=== PATIENT | female | born 1990 | race Two or more races ===

== ENCOUNTER 2017-07-06 20:56 | Inpatient (IN) | payer MEDICAID ==
[~2017-07-06] VITALS: Ht 149.9 cm; Wt 64.5 kg
[2017-07-06] MEDS ORDERED: DIPHENHYDRAMINE 50 MG/ML, 1ML IVPush ONE (21:30)
[2017-07-06] MEDS ORDERED: SODIUM CHLORIDE 0.9% 1,000ML IVBOLUS ONE (21:30)
[2017-07-06] MEDS ORDERED: METOCLOPRAMIDE 5 MG/ML, 2ML IVPush ONE (21:30)
[2017-07-06] MEDS ORDERED: DIPHENHYDRAMINE 50 MG/ML, 1ML ONE (21:54)
[2017-07-06] MEDS ORDERED: MORPHINE SULFATE 4 MG/ML, 1ML ONE (21:54)
[2017-07-06] MEDS ORDERED: METOCLOPRAMIDE 5 MG/ML, 2ML ONE (21:54)
[2017-07-06 21:59] LABS: PATH.CAST-FLAG NOT PRESENT; SPERM-FLAG NOT PRESENT; SRC-FLAG NOT PRESENT; XTAL-FLAG NOT PRESENT; YLC-FLAG NOT PRESENT
[2017-07-06 21:59] LABS: HEMATOCRIT 43.2 % (34.6-47.8); HEMOGLOBIN 14.7 g/dL (11.7-16.4); WHITE BLOOD COUNT 14.3 x10^3/uL (3.4-10)
[2017-07-06] MEDS: MORPHINE SULFATE 4 MG/ML, 1ML IVPush PRN (21:59)
[2017-07-06 22:09] LABS: ASPARTATE AMINO TRANSFERASE 13 U/L (15-37); BLOOD UREA NITROGEN 21 mg/dL (7-18)
[2017-07-06] MEDS ORDERED: INSULIN REGULAR 100 UNITS/ML, 3ML VIAL IVPush ONE (23:00)
[2017-07-07] MEDS ORDERED: LEVOFLOXACIN/PMX 750MG/150ML 150 ML IV ONE
[2017-07-07] MEDS ORDERED: SODIUM CHLORIDE 0.9% 1,000ML IVBOLUS ONE
[2017-07-07] MEDS ORDERED: LEVOFLOXACIN/PMX 750MG/150ML 150 ML ONE (00:11)
[2017-07-07] MEDS ORDERED: SODIUM CHLORIDE 0.9% 1,000 ML IV SCH ×3 (00:43→10:00)
[2017-07-07] MEDS: INSULIN ASPART 100 UNITS/ML, PEN SQ-INSULIN SCH ×2 (01:00→07:00)
[2017-07-07] MEDS ORDERED: DOCUSATE 100 MG CAPSULE PO PRN (01:00)
[2017-07-07] MEDS ORDERED: ACETAMINOPHEN 325 MG TABLET PO PRN (01:00)
[2017-07-07] MEDS ORDERED: TEMAZEPAM 15 MG CAPSULE PO PRN (01:00)
[2017-07-07] MEDS ORDERED: GUAIFENESIN/DM 200-20MG, 10ML UDC PO PRN (01:00)
[2017-07-07] MEDS ORDERED: ENOXAPARIN 40 MG/0.4 ML ONE (02:20)
[2017-07-07] MEDS ORDERED: MORPHINE SULFATE 4 MG/ML, 1ML ONE ×2 (02:59→07:33)
[2017-07-07] MEDS: MORPHINE SULFATE 4 MG/ML, 1ML IVPush PRN ×2 (03:12→14:36)
[2017-07-07] MEDS: ENOXAPARIN 40 MG/0.4 ML SQ SCH (03:12)
[2017-07-07 05:28] LABS: BLOOD UREA NITROGEN 14 mg/dL (7-18)
[2017-07-07] MEDS ORDERED: ONDANSETRON ODT 4 MG ONE (07:22)
[2017-07-07] MEDS: ONDANSETRON ODT 4 MG PO PRN ×2 (07:23→18:07)
[2017-07-07] MEDS: SODIUM CHLORIDE 0.9% 1,000 ML IV SCH ×2 (07:26→10:00)
[2017-07-07] MEDS ORDERED: MAGNESIUM SULFATE PMX 2GM/50ML 50 ML IV ONE (07:30)
[2017-07-07] MEDS: ONDANSETRON 2MG/ML, 2ML IVPush PRN ×2 (07:30→12:18)
[2017-07-07] MEDS ORDERED: ONDANSETRON 2MG/ML, 2ML ONE ×2 (07:34→12:15)
[2017-07-07 08:14] LABS: ABG COLLECTION SITE RIGHT BRACHIAL
[2017-07-07] MEDS ORDERED: REGULAR INSULIN 62.5 UNITS in SODIUM CHLORIDE 0.9% 249.375 ML IV PRN ×2 (08:30→10:00)
[2017-07-07 11:17] LABS: BLOOD UREA NITROGEN 13 mg/dL (7-18)
[2017-07-07] MEDS ORDERED: D5%-0.45% NACL 1,000 ML IV SCH (15:00)
[2017-07-07 15:43] LABS: BLOOD UREA NITROGEN 9 mg/dL (7-18)
[2017-07-07] MEDS ORDERED: AZITHROMYCIN 500 MG in SODIUM CHLORIDE 0.9% 250 ML IV SCH (16:00)
[2017-07-07] MEDS ORDERED: CEFTRIAXONE PMX 1GM/50ML 50 ML IV SCH (16:00)
[2017-07-07] MEDS: D5%-0.45% NACL 1,000 ML IV SCH (16:57)
[2017-07-07] MEDS ORDERED: PROMETHAZINE 25 MG/ML, 1ML ONE (17:17)
[2017-07-07] MEDS ORDERED: PROMETHAZINE 25 MG/ML, 1ML IM PRN (17:30)
[2017-07-07 18:22] LABS: BLOOD UREA NITROGEN 9 mg/dL (7-18)
[2017-07-07 23:26] LABS: BLOOD UREA NITROGEN 8 mg/dL (7-18)
[2017-07-08] MEDS ORDERED: LEVOFLOXACIN/PMX 750MG/150ML 150 ML IV SCH
[2017-07-08] MEDS: ENOXAPARIN 40 MG/0.4 ML SQ SCH (01:51)
[2017-07-08] MEDS: D5%-0.45% NACL 1,000 ML IV SCH ×2 (01:51→10:33)
[2017-07-08 04:00] VITALS: BP 105/71
[2017-07-08 04:45] LABS: HEMATOCRIT 37.9 % (34.6-47.8); HEMOGLOBIN 12.7 g/dL (11.7-16.4); WHITE BLOOD COUNT 10.5 x10^3/uL (3.4-10)
[2017-07-08 05:09] LABS: BLOOD UREA NITROGEN 6 mg/dL (7-18)
[2017-07-08] MEDS: MORPHINE SULFATE 4 MG/ML, 1ML IVPush PRN (06:28)
[2017-07-08 08:11] LABS: BLOOD UREA NITROGEN 7 mg/dL (7-18)
[2017-07-08] MEDS ORDERED: REGULAR INSULIN 62.5 UNITS in SODIUM CHLORIDE 0.9% 249.375 ML IV PRN (10:00)
[2017-07-08 12:26] LABS: BLOOD UREA NITROGEN 5 mg/dL (7-18)
[2017-07-08] MEDS ORDERED: INSULIN DETEMIR 100 UNITS/ML, PEN SQ-INSULIN SCH ×2 (13:00→17:00)
[2017-07-08] MEDS ORDERED: POTASSIUM CHLORIDE 20 MEQ TAB.ER.PRT PO ONE (13:00)
[2017-07-08] MEDS ORDERED: INSULIN ASPART 100 UNITS/ML, PEN SQ-INSULIN SCH (13:00)
[2017-07-08] MEDS: INSULIN ASPART 100 UNITS/ML, PEN SQ-INSULIN SCH ×2 (16:58→21:00)
[2017-07-09] MEDS ORDERED: INSULIN DETEMIR 100 UNITS/ML, PEN SQ-INSULIN SCH ×2 (01:00→13:00)
[2017-07-09] MEDS: ENOXAPARIN 40 MG/0.4 ML SQ SCH (01:19)
[2017-07-09 04:37] LABS: BLOOD UREA NITROGEN 7 mg/dL (7-18)
[2017-07-09 05:35] VITALS: BP 126/89
[2017-07-09 06:58] VITALS: BP 121/84
[2017-07-09] MEDS ORDERED: GLUCAGON 1 MG IM PRN (07:00)
[2017-07-09] MEDS ORDERED: DEXTROSE 50%, 50ML SYRINGE IVPush PRN (07:00)
[2017-07-09] MEDS ORDERED: DEXTROSE 4 GM TAB.CHEW PO PRN (07:00)
[2017-07-09] MEDS: INSULIN ASPART 100 UNITS/ML, PEN SQ-INSULIN SCH ×3 (08:24→16:43)
[2017-07-09] MEDS ORDERED: SODIUM CHLORIDE FLUSH 10ML SYR IVF SCH (09:00)
[2017-07-09 13:15] VITALS: BP 131/90
[2017-07-09] MEDS ORDERED: IBUPROFEN 200 MG TABLET PO PRN (14:30)
[2017-07-09] MEDS ORDERED: INSULIN DETEMIR 100 UNITS/ML, PEN SQ-INSULIN ONE (14:30)
[2017-07-09] MEDS ORDERED: ENOXAPARIN 40 MG/0.4 ML SQ SCH (21:00)
== END 2017-07-09 21:45 | disposition left against medical advice (07) | DRG 638 ==
LOC: ED 23:20 → EDIP 23:50 → CCU 07-07 12:30 → 4NOR 07-09 05:15
PROVIDERS: ADMIT Family Medicine; ATTEND Family Medicine
DX: E10.10 Type 1 diabetes mellitus with ketoacidosis without coma (principal); E87.0 Hyperosmolality and hypernatremia; E87.1 Hypo-osmolality and hyponatremia; E03.9 Hypothyroidism, unspecified; R91.1 Solitary pulmonary nodule; F17.210 Nicotine dependence, cigarettes, uncomplicated; Z76.5 Malingerer [conscious simulation]; Z78.9 Other specified health status; Z79.4 Long term (current) use of insulin; Z87.01 Personal history of pneumonia (recurrent)
CPT/HCPCS: 36415; 36600; 70450; 71010; 71250; 80048; 80053; 81001; 82010; 82803; 82947; 82962; 83690; 83735; 83930; 84100; 85025; 86480; 87040; 87081; 93005; 96361; 96372; 96374; 96375; 96376; J0456; J0696; J1650; J1815; J1956; J2405; J2550; Q0162; J1200; J2765; J3475; J7030; J7050

== ENCOUNTER 2019-03-27 22:41 | Emergency (ER) | payer MEDICAID ==
[~2019-03-27] VITALS: Ht 149.9 cm; Wt 73.8 kg
[2019-03-27 22:48] VITALS: BP 123/85
--- NOTE | 2019-03-27 22:53 | NUR ---
TO ROOM 04
[2019-03-27] MEDS ORDERED: LIDOCAINE-MPF 1%, 5ML ONE (23:15)
[2019-03-27] MEDS ORDERED: BUPIVACAINE 0.25% ONE (23:15)
[2019-03-27] MEDS ORDERED: BUPIVACAINE 0.25% INFIL ONE (23:30)
[2019-03-27] MEDS ORDERED: LIDOCAINE-MPF 1%, 5ML INFIL ONE (23:30)
--- NOTE | 2019-03-28 00:27 | NUR ---
DC EDUCATION PROVIDED, PT DEMONSTRATES UNDERSTANDING. PT AMBULATED STEADILY TO DC WITH RN AND SO
== END 2019-03-28 00:29 | disposition home or self-care (01) ==
LOC: ED 23:23
DX: L03.031 Cellulitis of right toe (principal); M79.671 Pain in right foot; E10.9 Type 1 diabetes mellitus without complications
CPT/HCPCS: 10060

== ENCOUNTER 2019-07-20 13:58 | Emergency (ER) | payer MEDICAID, OTHER ==
[~2019-07-20] VITALS: Ht 149.9 cm; Wt 74.9 kg
--- NOTE | 2019-07-20 14:35 | NUR ---
THIS RN IN TO ASSESS PT. PT ASKED TO CHANGE INTO GOWN.
--- NOTE | 2019-07-20 14:46 | NUR ---
28 Y/O FEMALE PRESENTS TO ED WITH C/O ABDOMAINAL PAIN. "I HAVE SOME BELLY PAIN. ITS ABOVE MY BELLY. IT STARTED YESTERDAY. I'VE BEEN REALLY NAUSEATED. MY FSBS WAS IN THE 500s AND I TOOK 50 UNITS OF REGULAR INSULIN." NO C/O TRAUMA, V/D, TRAUMA, SYNCOPE, CP, SOB. PT PLACED ON CONT PULSE OX,NIBP. LAB BEDSIDE
[2019-07-20] MEDS ORDERED: SODIUM CHLORIDE FLUSH 10ML SYR IVF ONE (15:00)
[2019-07-20] MEDS ORDERED: SODIUM CHLORIDE 0.9% 1,000ML IVBOLUS ONE (15:00)
[2019-07-20 15:03] LABS: MICROSCOPIC NOT IND
[2019-07-20 15:14] LABS: ALANINE AMINOTRANSFERASE 20 U/L (12-78); ALBUMIN 3.5 g/dL (3.4-5.0); ANION GAP 16 mmol/L (5-15); CALCIUM 9.2 mg/dL (8.5-10.1); CHLORIDE 99 mmol/L (98-107); CREATININE 1.03 mg/dL (0.55-1.02)
[2019-07-20 15:15] LABS: BASOPHILS # (AUTO) 0.02 x10^3/uL (0-0.1); BASOPHILS % (AUTO) 0 % (0-1); EOSINOPHILS # (AUTO) 0.09 x10^3/uL (0-0.4); EOSINOPHILS % (AUTO) 1 % (1-7); LYMPHOCYTES # (AUTO) 2.77 x10^3/uL (1-3.4); LYMPHOCYTES % (AUTO) 20 % (22-44); MD NO; MEAN CORPUSCULAR HEMOGLOBIN 29.3 pg (27.0-34.8); MEAN CORPUSCULAR VOLUME 88.7 fL (80-100); MEAN PLATELET VOLUME 8.8 fL (7.4-10.4); MONOCYTES # (AUTO) 0.43 x10^3/uL (0.2-0.8); MONOCYTES % (AUTO) 3 % (2-9); NEUTROPHILS # (AUTO) 10.65 x10^3/uL (1.8-6.8); NEUTROPHILS % (AUTO) 76 % (42-75); PLATELET COUNT 429 x10^3/uL (130-400); RED BLOOD COUNT 5.05 x10^6/uL (3.82-5.3); RED CELL DISTRIBUTION WIDTH 12.6 % (9.6-15.2)
[2019-07-20 15:16] LABS: ALKALINE PHOSPHATASE 91 U/L (45-117); BILIRUBIN,TOTAL 0.6 mg/dL (0.2-1.0); TOTAL PROTEIN 8.3 g/dL (6.4-8.2)
--- NOTE | 2019-07-20 15:17 | NUR ---
PIV ESTABLISHED. PT TOLERATED WITH NO COMPLICATIONS.
[2019-07-20 15:22] LABS: CULTURE INDICATED? NO
--- NOTE | 2019-07-20 15:36 | NUR ---
LATE ENTRY FOR 1530 PT GIVEN WARM BLANKET. CALL LIGHT WITHIN REACH OF PT.
[2019-07-20 15:50] LABS: ACETONE, SERUM Small (20mg/dL) mg/dL (Negative)
--- NOTE | 2019-07-20 15:53 | NUR ---
BEDSIDE REPORT TO ALETA REYNA.
--- NOTE | 2019-07-20 15:57 | NUR ---
PT REFUSING TYLENOL. PT STATES "THE TYLENOL ISN'T GOING TO WORK. I WOULD PREFER SOMETHING STRONGER THAN TYLENOL." NO ACUTE DISTRESS NOTED. WILL NOTIFY EDMD.
[2019-07-20] MEDS ORDERED: ACETAMINOPHEN 500 MG TABLET PO ONE (16:00)
[2019-07-20] MEDS ORDERED: ACETAMINOPHEN 500 MG TABLET ONE (16:36)
--- NOTE | 2019-07-20 16:53 | NUR ---
PT C/O FEELING "SHAKY". ERP NOTIFIED. FSBG 61. SNACKS & JUICE PROVIDED. PT MEDICATED WITH TYLENOL FOR PAIN "ALL OVER".
--- NOTE | 2019-07-20 17:25 | NUR ---
PT HAD JUICE AND CRACKERS. WAS REQUESTING A MEAL BUT WILL HOLD OFF PER ERP; ABD XR AND US ORDERED.
--- NOTE | 2019-07-20 18:41 | NUR ---
PT STATING SHE WANTS TO GO HOME, STATES SHE'S "BEEN WAITING FOR 4 HOURS, AND I'M NOT GETTING ANYTHING FOR PAIN, AND THEY STILL HAVEN'T DONE THE US." WILL NOTIFY ERP.
--- NOTE | 2019-07-20 19:54 | NUR ---
PT REPORTED FEELING HYPOGLYCEMIC AGAIN. FSBG 39. ERP NOTIFIED. JUICE & CRACKERS & SANDWICH PROVIDED. ERP AT BS FOR RECHECK NOW.
[2019-07-20] MEDS ORDERED: FAMOTIDINE 20 MG TABLET PO ONE (20:30)
[2019-07-20] MEDS ORDERED: FAMOTIDINE 20 MG TABLET ONE (20:34)
--- NOTE | 2019-07-20 20:56 | NUR ---
PT STATING SHE WANTS TO LEAVE. ENCOURAGED PT TO STAY UNTIL 2100 TO RECHECK BLOOD SUGAR PER ERP; PT ACQUIESCED. FSBG 196 AT THIS TIME.
[2019-07-20 21:40] VITALS: BP 122/78
--- NOTE | 2019-07-20 21:40 | NUR ---
D/C INSTRUCTIONS RV'WD WITH PT. INSTRUCTED PT TO F/U WITH PCP REGARDING BLOOD SUGAR MANAGEMENT AND TO TAKE INSULIN DIRECTED. PT VERBALIZED UNDERSTANDING. PT AMBULATED OUT OF ED WITHOUT DIFFICULTY.
== END 2019-07-20 21:54 | disposition home or self-care (01) ==
LOC: ED 18:41
DX: K29.70 Gastritis, unspecified, without bleeding (principal); E11.65 Type 2 diabetes mellitus with hyperglycemia
CPT/HCPCS: 36415; 74022; 76700; 80053; 81003; 82010; 82962; 85025; 96360; 99284; J7030

== ENCOUNTER 2019-11-13 14:20 | Emergency (ER) | payer SELFPAY ==
[~2019-11-13] VITALS: Ht 149.9 cm; Wt 78.6 kg
[2019-11-13 14:44] VITALS: BP 124/88
[2019-11-13] MEDS ORDERED: NAPROXEN 500 MG TABLET PO ONE (15:30)
[2019-11-13] MEDS ORDERED: NAPROXEN 500 MG TABLET ONE (15:42)
[2019-11-13 16:08] LABS: RAPID INFLUENZA A Negative (Negative); RAPID INFLUENZA B Negative (Negative)
--- NOTE | 2019-11-13 16:27 | NUR ---
Patient/Caregiver given discharge instructions and they have confirmed that they understand the instructions. Patient ambulatory with steady gait. PT LEFT WITH ALL PERSONAL BELONGINGS.
== END 2019-11-13 16:29 | disposition home or self-care (01) ==
LOC: ED 16:15
DX: M94.0 Chondrocostal junction syndrome [Tietze] (principal); B34.9 Viral infection, unspecified; E11.65 Type 2 diabetes mellitus with hyperglycemia; R00.0 Tachycardia, unspecified; F17.200 Nicotine dependence, unspecified, uncomplicated
CPT/HCPCS: 71046; 82962; 87400; 93005; 99285

== ENCOUNTER 2020-08-01 23:15 | Emergency (ER) | payer MEDICAID ==
[~2020-08-01] VITALS: Ht 144.8 cm; Wt 78.9 kg
[2020-08-02] MEDS ORDERED: SODIUM CHLORIDE 0.9% 1,000ML IVBOLUS ONE
[2020-08-02] MEDS ORDERED: SODIUM CHLORIDE FLUSH 10ML SYR IVF ONE
--- NOTE | 2020-08-02 | NUR ---
LATE ENTRY D/T PT CARE: PT REPORTS COMING IN THIS EVENING AFTER FEELING LIKE SHES IN DKA. PT STATES THAT SHE IS NAUSEATED, VOMITING AND HAS EPIGASTRIC PAIN. PT STATES HER BONES FEEL LIKE THEY ARE ACHING. BF AT BS. PT GROSS NEURO INTACT, STATES PERSON BLOOD GLUCOSE READING IN 260S, TOOK 20 U INSULIN TEXTILE DYER. WCTM PT PLACED ON SPO2/BP/ECG MONITORING.
[2020-08-02 00:16] LABS: PH, VENOUS 7.346 pH (7.320-7.420)
[2020-08-02 00:21] LABS: BASOPHILS % (AUTO) 1 % (0-1); EOSINOPHILS % (AUTO) 2 % (1-7); LYMPHOCYTES % (AUTO) 28 % (22-44); MEAN CORPUSCULAR HEMOGLOBIN 26.8 pg (27.0-34.8); MEAN CORPUSCULAR HGB CONC 32.9 g/dL (32.4-35.8); MEAN PLATELET VOLUME 9.2 fL (7.4-10.4); MONOCYTES % (AUTO) 6 % (2-9); NEUTROPHILS % (AUTO) 63 % (42-75); PLATELET COUNT 405 x10^3/uL (130-400); RED BLOOD COUNT 5.03 x10^6/uL (3.82-5.3); RED CELL DISTRIBUTION WIDTH 11.8 % (9.6-15.2)
[2020-08-02 00:26] LABS: MICROSCOPIC AUTO
[2020-08-02] MEDS ORDERED: MAALOX/HYOSCYAMINE/LIDOCAINE 45 ML BTL ONE (00:26)
[2020-08-02] MEDS ORDERED: ONDANSETRON 2MG/ML, 2ML ONE (00:26)
[2020-08-02] MEDS ORDERED: MORPHINE SULFATE 4 MG/ML, 1ML ONE (00:26)
[2020-08-02 00:28] VITALS: BP 117/87
[2020-08-02 00:28] LABS: ALANINE AMINOTRANSFERASE 29 U/L (12-78); ALBUMIN 3.2 g/dL (3.4-5.0); ANION GAP 12 mmol/L (5-15); CALCIUM 9.7 mg/dL (8.5-10.1); CHLORIDE 104 mmol/L (98-107)
[2020-08-02 00:30] LABS: MD NO
[2020-08-02] MEDS ORDERED: ONDANSETRON 2MG/ML, 2ML IVPush ONE (00:30)
[2020-08-02] MEDS ORDERED: MORPHINE SULFATE 4 MG/ML, 1ML IVPush PRN (00:30)
[2020-08-02] MEDS ORDERED: MAALOX/HYOSCYAMINE/LIDOCAINE 45 ML BTL PO ONE (00:30)
[2020-08-02 00:33] LABS: ALKALINE PHOSPHATASE 92 U/L (45-117); BILIRUBIN,TOTAL 0.3 mg/dL (0.2-1.0); TOTAL PROTEIN 7.8 g/dL (6.4-8.2)
--- NOTE | 2020-08-02 00:57 | NUR ---
PT RESTING ON GURNEY, NAD, MEDICATED PER NOV, APPEARS COMFORTABLE, PROVIDED ADDITIONAL BLANKETS FOR COMFORT, BED IN LOWEST, CALL LIGHT ON LAP, SIGNIFICANT OTHER AT BS, WCTM. WAITING FOR ADDITIONAL LABS RESULTS
[2020-08-02 02:09] LABS: ACETONE, SERUM Small (20mg/dL) (Negative)
== END 2020-08-02 01:29 | disposition home or self-care (01) ==
LOC: ED 08-02 01:29
DX: K29.00 Acute gastritis without bleeding (principal); E11.65 Type 2 diabetes mellitus with hyperglycemia; R00.0 Tachycardia, unspecified; R11.2 Nausea with vomiting, unspecified; F17.210 Nicotine dependence, cigarettes, uncomplicated; Z79.4 Long term (current) use of insulin
CPT/HCPCS: 36415; 80053; 81001; 82010; 82803; 82962; 83930; 84703; 85025; 87086; 93005; 96361; 96374; 96375; 99284; 99406; J2270; J2405; J7030; 99285

== ENCOUNTER 2020-11-11 20:05 | Emergency (ER) | payer MEDICAID ==
[~2020-11-11] VITALS: Ht 149.9 cm; Wt 72.1 kg
[2020-11-11] MEDS ORDERED: PROCHLORPERAZINE 5 MG/ML, 2ML ONE (20:41)
[2020-11-11] MEDS ORDERED: ACETAMINOPHEN 325 MG TABLET ONE (20:41)
[2020-11-11] MEDS ORDERED: DIPHENHYDRAMINE 50 MG/ML, 1ML ONE (20:41)
[2020-11-11] MEDS ORDERED: PROCHLORPERAZINE 5 MG/ML, 2ML IVPush ONE (21:00)
[2020-11-11] MEDS ORDERED: ACETAMINOPHEN 325 MG TABLET PO ONE (21:00)
[2020-11-11] MEDS ORDERED: SODIUM CHLORIDE FLUSH 10ML SYR IVF ONE (21:00)
[2020-11-11] MEDS ORDERED: SODIUM CHLORIDE 0.9% 1,000ML IVBOLUS ONE (21:00)
[2020-11-11] MEDS ORDERED: DIPHENHYDRAMINE 50 MG/ML, 1ML IVPush ONE (21:00)
[2020-11-11 21:01] LABS: BASOPHILS % (AUTO) 1 % (0-1); EOSINOPHILS % (AUTO) 2 % (1-7); LYMPHOCYTES % (AUTO) 37 % (22-44); MD NO; MEAN CORPUSCULAR HGB CONC 33.7 g/dL (32.4-35.8); MEAN PLATELET VOLUME 8.8 fL (7.4-10.4); MONOCYTES % (AUTO) 6 % (2-9); NEUTROPHILS % (AUTO) 54 % (42-75); PLATELET COUNT 433 x10^3/uL (130-400); RED BLOOD COUNT 5.23 x10^6/uL (3.82-5.3); RED CELL DISTRIBUTION WIDTH 12.7 % (9.6-15.2)
[2020-11-11 21:11] LABS: ALANINE AMINOTRANSFERASE 21 U/L (12-78); ALBUMIN 3.4 g/dL (3.4-5.0); ANION GAP 11 mmol/L (5-15); CALCIUM 9.5 mg/dL (8.5-10.1); CHLORIDE 107 mmol/L (98-107)
[2020-11-11 21:15] LABS: ALKALINE PHOSPHATASE 109 U/L (45-117); BILIRUBIN,TOTAL 0.3 mg/dL (0.2-1.0); TOTAL PROTEIN 8.3 g/dL (6.4-8.2)
--- NOTE | 2020-11-11 21:34 | NUR ---
pt in bed with graduate fellow in place and bed rails up bilaterally with lights off in room for comfort. pt with no signs or symptoms of acute distress noted respirations even and unlabored, states that her headache is resolved. pt with call light within reach and significant other at bedside.
--- NOTE | 2020-11-11 21:52 | NUR ---
md at bedside to assess. pt in bed with no signs or symptoms of acute distress noted respirations even and unlabored
[2020-11-11 22:39] VITALS: BP 140/71
== END 2020-11-11 22:41 | disposition home or self-care (01) ==
LOC: ED 21:55
DX: B34.9 Viral infection, unspecified (principal); Z20.822 Contact with and (suspected) exposure to COVID-19; R51.9 Headache, unspecified; R11.2 Nausea with vomiting, unspecified; K21.9 Gastro-esophageal reflux disease without esophagitis; E78.5 Hyperlipidemia, unspecified; E11.9 Type 2 diabetes mellitus without complications; Z88.6 Allergy status to analgesic agent
CPT/HCPCS: 70450; 80053; 84703; 85025; 87635; 96361; 96374; 96375; 99284; J0780; J1200; J7030